=== PATIENT | male | born 1985 | race Hispanic/Latino ===

== ENCOUNTER 2017-03-30 00:20 | Emergency (ER) | payer BC, SELFPAY ==
[2017-03-30] MEDS ORDERED: diphenhydrAMINE 50 MG/ML VIAL ONE (00:56)
[2017-03-30] MEDS ORDERED: Metoclopramide HCl 10 MG/2 ML VIAL ONE (00:56)
== END 2017-03-30 02:53 | disposition home or self-care (01) ==
LOC: ERS 00:20
DX: R51 Headache (principal); F41.9 Anxiety disorder, unspecified; F17.210 Nicotine dependence, cigarettes, uncomplicated
CPT/HCPCS: 96361; 96374; 96375; 99406; J1200; J2765